=== PATIENT | female | born 2000 | race Hispanic/Latino ===

== ENCOUNTER 2022-12-04 00:19 | Emergency (ER) | payer OTHER, MEDICAID, SELFPAY ==
[2022-12-04 00:25] VITALS: BP 111/90; PULSE 104; RESP 20; TEMP 36.9; O2SAT 98; BMI 24.9
--- NOTE | 2022-12-04 03:17 | ED.SKABFB ---
HPI - Skin/Abscess/Foreign Bdy General Chief complaint: Skin/Abscess/Foreign Body Stated complaint: bartholin cyst Time Seen by Provider: 12/04/22 03:16 Source: patient Mode of arrival: Ambulatory Limitations: no limitations History of Present Illness HPI narrative: Patient is a 22-year-old female presenting today with left sided vaginal pain. She reports she is a history of Bartholin cysts and this feels similar. It has been ongoing for last 4 days she is been using Sitz baths. She is able to lay down but sitting has become very uncomfortable and pain has gotten worse. No fevers. No abdominal pain. Related Data Allergies Allergy/AdvReac Type Severity Reaction Status Date / Time No Known Drug Allergies Allergy Verified 12/04/22 00:32 Review of Systems Review of Systems ROS Unobtainable: All systems reviewed & are unremarkable except as noted in HPI and below Patient History Social History Smoking Status: Never smoker Smoking Status: Never smoker alcohol intake frequency: holidays/special occasions only Substance Use Type: does not use Exam Initial Vital Signs Initial Vital Signs: Vital Signs Temperature 98.4 F 12/04/22 00:25 Pulse Rate 104 H 12/04/22 00:25 Respiratory Rate 20 12/04/22 00:25 Blood Pressure 111/90 12/04/22 00:25 Pulse Oximetry 98 12/04/22 00:25 Oxygen Delivery Method Room Air 12/04/22 00:25 GENERAL: Well-appearing, well-nourished and in no acute distress. CARDIOVASCULAR: peripheral pulses in tact, cap refill <2 sec RESPIRATORY: No respiratory distress, speaks in full sentences without difficulty PELVIC: Normal external vaginal exam left Bartholin cyst identified EXTREMITIES: Normal range of motion, no clubbing or edema. Neurovascularly intact NEUROLOGICAL: Cranial nerves II through XII grossly intact. Normal gait and speech. SKIN: Warm, dry, no petechiae, no rashes or lesions. 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 No fever. It was easily drained with quite a bit of drainage. Word catheter was easily placed. She has [facility] appointment next week. Discharge Plan Departure Patient Disposition: Home Clinical Impression: Bartholin gland cyst Instructions: Bartholin Gland Cyst Activity Restrictions/Additional Instructions: *You have been diagnosed with Bartholin cyst *What to do: Keep catheter in place. Pelvic rest nothing in vagina will catheter is in place. *Continue to take medications as directed *Follow up with your primary care provider in 2-3 days or call [phone] Follow-up with systems program manager as scheduled *Return to ER if you should have increased swelling fever pain or any new, worsening or concerning symptoms Stand Alone Forms: Patient Portal/API
[2022-12-04 03:46] VITALS: BP 136/78; PULSE 102; RESP 16; O2SAT 100
== END 2022-12-04 03:46 | disposition home or self-care (01) ==
PROVIDERS: Emergency Provider Emergency Medicine
DX: N75.0 Cyst of Bartholin's gland (principal)
CPT/HCPCS: 56420; 99281; 99282